=== PATIENT | male | born 1960 | race Caucasian/White ===

== ENCOUNTER → 2025-01-15 08:03 | Outpatient (REF) | payer OTHER, SELFPAY | LOC: RAD 08:03 | PROVIDERS: ATTENDING PHYSICIAN Physician Assistant | DX: G89.29 Other chronic pain (principal); M25.561 Pain in right knee | CPT/HCPCS: 73564 ==

== ENCOUNTER → 2025-02-09 12:20 | Outpatient (REF) | payer OTHER, SELFPAY | LOC: RCS 12:20 | PROVIDERS: ATTENDING PHYSICIAN Family Medicine | DX: M54.2 Cervicalgia (principal); T18.9XXA Foreign body of alimentary tract, part unspecified, initial encounter | CPT/HCPCS: 71046; 93005 ==

== ENCOUNTER → 2025-04-21 09:15 | Outpatient (REF) | payer OTHER, SELFPAY | LOC: RAD 09:15 | PROVIDERS: ATTENDING PHYSICIAN Nurse Practitioner Family | DX: R68.84 Jaw pain (principal); M54.2 Cervicalgia; R09.A2 Foreign body sensation, throat; J32.9 Chronic sinusitis, unspecified | CPT/HCPCS: 76536 ==

== ENCOUNTER → 2025-04-26 19:12 | Outpatient (REF) | payer OTHER, SELFPAY | LOC: MRI 3T 19:12 | PROVIDERS: ATTENDING PHYSICIAN Otolaryngology; FAMILY PHYSICIAN Family Medicine | DX: M54.12 Radiculopathy, cervical region (principal) | CPT/HCPCS: 72156; A9575 ==